=== PATIENT | female | born 1995 | race Two or more races ===

== ENCOUNTER 2019-10-01 03:55 | Emergency (ER) | payer MEDICAID ==
[~2019-10-01] VITALS: Ht 175.3 cm; Wt 79.4 kg
[2019-10-01] MEDS ORDERED: ADENOSINE 6 MG/2 ML INJ IV ONE ×2 (04:15)
[2019-10-01 05:41] LABS: Basophils # (auto) 0 uL; Basophils % (auto) 0.6 % (0.0-2.0); Eosinophils # (auto) 0.1 uL; Eosinophils % (auto) 1.2 % (0.0-7.0); Hematocrit 43.6 % (36.0-46.0); Lymphocytes % (auto) 39.5 % (10.0-50.0); Mean Corpuscular Hemoglobin 30.9 pg (28.0-32.0); Mean Corpuscular Hgb Conc. 34.4 g/dL (32.0-36.0); Mean Corpuscular Volume 89.7 fL (80.0-100.0); Monocytes # (auto) 0.5 uL; Monocytes % (auto) 6.2 % (0.0-12.0); Neutrophils % (auto) 52.5 % (37.0-80.0); Platelet Count (auto) 226 10^3/uL (140-450); Red Blood Cells 4.86 10^6/uL (4.0-5.20); Red Cell Distribution Width 12.6 % (11.8-14.3); White Blood Cell 7.6 10^3/uL (4.4-10.8)
[2019-10-01 05:44] LABS: Urine Bacteria NONE SEEN /hpf (None Seen); Urine Blood Negative /uL (Negative); Urine Specific Gravity 1.001 (1.001-1.035); Urine WBC <1 /hpf (0 - 5)
[2019-10-01 05:58] LABS: Alanine Aminotransferase 33 U/L (13-56); Albumin 3.7 g/dL (3.4-5.0); Anion Gap 10 (5-15); Aspartate Aminotransferase 21 U/L (15-37); BUN/Creatinine Ratio 15.4; Blood Urea Nitrogen 10 mg/dL (7-18); Calcium 8.6 mg/dL (8.5-10.1); Carbon Dioxide 19 mmol/L (21-32); Chloride 115 mmol/L (98-107); GFR African American 144 mL/min; GFR Non-African American 119 mL/min; Glucose 83 mg/dL (74-106); Magnesium 2.1 mg/dL (1.6-2.6); Potassium 3.8 mmol/L (3.5-5.1); Sodium 144 mmol/L (136-145)
[2019-10-01 06:02] LABS: Alkaline Phosphatase 70 U/L (45-117); Bilirubin, Total 0.2 mg/dL (0.2-1.0); Total Protein 7.4 g/dL (6.4-8.2)
[2019-10-01 06:03] LABS: Amphetamine Screen, Urine NEGATIVE (NEGATIVE); Barbiturate Scree,Urine NEGATIVE (NEGATIVE); Benzodiazephine Screen, Urine NEGATIVE (NEGATIVE); Cannabinoid Screen, Urine POSITIVE (NEGATIVE); Opiate Scree,Urine NEGATIVE (NEGATIVE); Phencyclidine Screen, Urine NEGATIVE (NEGATIVE)
[2019-10-01 06:10] LABS: Cocaine Screen, Urine NEGATIVE (NEGATIVE)
[2019-10-01 06:30] VITALS: BP 105/59
== END 2019-10-01 06:39 | disposition home or self-care (01) ==
LOC: ER 04:09
DX: I47.1 Supraventricular tachycardia (principal); F41.9 Anxiety disorder, unspecified
CPT/HCPCS: 36415; 80053; 80307; 80320; 81001; 83735; 84443; 84484; 84702; 85025; 93005; 96374; 99284; J0153

== ENCOUNTER 2020-12-17 20:07 | Emergency (ER) | payer MEDICAID | END 2020-12-17 20:28 | disposition left against medical advice (07) | LOC: ER 20:12 | DX: J02.9 Acute pharyngitis, unspecified (principal); H92.09 Otalgia, unspecified ear; Z53.21 Procedure and treatment not carried out due to patient leaving prior to being seen by health care provider ==

== ENCOUNTER 2021-03-17 01:58 | Inpatient (IN) | payer MEDICAID ==
[~2021-03-17] VITALS: Ht 170.2 cm; Wt 107.4 kg
[2021-03-17] MEDS ORDERED: ONDANSETRON HCL 4 MG/2 ML VIAL IV ONE (04:00)
[2021-03-17] MEDS ORDERED: fentaNYL CITRATE 100 MCG/2 ML VL IV ONE (04:00)
[2021-03-17] MEDS ORDERED: KETOROLAC TROMETH 30 MG/ML 1ML VIAL IV ONE (04:00)
[2021-03-17] MEDS ORDERED: HYDROmorphone HCL 2 MG/ML VL IV ONE (06:30)
[2021-03-17] MEDS ORDERED: MORPHINE SULFATE 4 MG/ML SYR/VIAL IV PRN (07:15)
[2021-03-17] MEDS ORDERED: ACETAMINOPHEN 325 MG TAB PO PRN (07:15)
[2021-03-17] MEDS ORDERED: KETOROLAC TROMETH 30 MG/ML 1ML VIAL IV PRN (07:15)
[2021-03-17] MEDS ORDERED: ONDANSETRON HCL 4 MG/2 ML VIAL IV PRN (07:15)
[2021-03-17] MEDS ORDERED: HYDROcodone-ACET 5/325MG TAB PO PRN (07:15)
[2021-03-17] MEDS ORDERED: NITROGLYCERIN 0.4 MG SL TAB SL PRN (07:15)
[2021-03-17] MEDS ORDERED: MORPHINE SULF INJ 2 MG/ML SYRINGE 1ML IV PRN (07:15)
[2021-03-17 08:00] VITALS: BP 116/63
[2021-03-17 08:33] LABS: Basophils # (auto) 0 10 ^3/uL (0-0.2); Basophils % (auto) 0.1 % (0.0-2.0); Eosinophils # (auto) 0 10 ^3/uL (0-0.8); Eosinophils % (auto) 0.1 % (0.0-7.0); Hematocrit 40.5 % (36.0-46.0); Lymphocytes # (auto) 1.8 10 ^3/uL (0.4-5.4); Lymphocytes % (auto) 9.7 % (10.0-50.0); Mean Corpuscular Hemoglobin 31.5 pg (28.0-32.0); Mean Corpuscular Hgb Conc. 34.4 g/dL (32.0-36.0); Mean Corpuscular Volume 91.5 fL (80.0-100.0); Monocytes # (auto) 0.8 10 ^3/uL (0-1.3); Monocytes % (auto) 4.1 % (0.0-12.0); Neutrophils # (auto) 16.1 10 ^3/uL (1.6-8.6); Platelet Count (auto) 301 10^3/uL (140-450); Red Blood Cells 4.43 10^6/uL (4.0-5.20); Red Cell Distribution Width 12.9 % (11.8-14.3); White Blood Cell 18.7 10^3/uL (4.4-10.8)
[2021-03-17 08:35] LABS: INR 0.96 (0.9-1.15); Partial Thromboplastin Time 24.1 sec (23.0-31.2); Potassium 3.9 mmol/L (3.5-5.1)
[2021-03-17 08:45] LABS: BUN/Creatinine Ratio 13.7; Calcium 8.8 mg/dL (8.5-10.1)
[2021-03-17 08:46] LABS: Albumin 3.7 g/dL (3.4-5.0); Bilirubin, Total 0.5 mg/dL (0.2-1.0); Magnesium 2.5 mg/dL (1.6-2.6); Total Protein 7.6 g/dL (6.4-8.2)
[2021-03-17 08:56] LABS: Urine Bacteria NONE SEEN /hpf (None Seen); Urine Blood Negative /uL (Negative); Urine Hyaline Cast FEW /lpf (0 - 2); Urine Specific Gravity 1.024 (1.001-1.035); Urine WBC 3 /hpf (0 - 5)
[2021-03-17] MEDS: MULTIPLE VITAMIN TAB PO SCH (10:00)
[2021-03-17] MEDS: ASCORBIC ACID 500 MG TAB PO SCH ×2 (10:00→21:39)
[2021-03-17] MEDS: ZINC SULFATE 220mg CAP or TAB PO SCH (10:00)
[2021-03-17] MEDS: ENOXAPARIN SOD 40 MG/0.4 ML SYRINGE SC SCH (12:15)
[2021-03-17] MEDS: FAMOTIDINE (10MG/ML) 2ML VL IV SCH ×2 (12:15→21:39)
[2021-03-17 13:00] VITALS: BP 133/66
[2021-03-17] MEDS ORDERED: BUPIVACAINE 0.25% INJ 50ML VIAL ONE (14:50)
[2021-03-17] MEDS ORDERED: ceFAZolin 1GM/50ML 100 ML IV ONE (15:02)
[2021-03-17] MEDS ORDERED: MIDAZOLAM HCL 1MG/1ML-2 ML VIAL ONE (15:04)
[2021-03-17] MEDS ORDERED: fentaNYL CITRATE 100 MCG/2 ML VL ONE (15:04)
[2021-03-17] MEDS ORDERED: ONDANSETRON HCL 4 MG/2 ML VIAL ONE (15:46)
[2021-03-17] MEDS: ceFAZolin 1GM/50ML 50 ML IV SCH ×2 (16:15→21:39)
[2021-03-17] MEDS: LACTATED RINGER'S 1,000 ML IV SCH (16:15)
[2021-03-17] MEDS ORDERED: METOCLOPRAMIDE HCL 5MG/ml INJ 2ml VIAL IV PRN (16:30)
[2021-03-17] MEDS ORDERED: HYDROmorphone HCL 2 MG/ML VL IV PRN (16:30)
[2021-03-17] MEDS: HYDROmorphone HCL 2 MG/ML VL IV PRN ×6 (16:38→22:26)
[2021-03-17] MEDS: DOCUSATE SOD 100 MG CAP PO SCH (21:38)
[2021-03-17] MEDS: SODIUM CHLOR 0.9% PF (SALINE LOCK) 10ML VIAL/SYR IV SCH (21:39)
[2021-03-17] MEDS: OXYCODONE W/ ACETAMINOPHEN 5/325MG TABLET PO PRN (21:45)
[2021-03-17 22:00] VITALS: BP 127/88
[2021-03-18] MEDS: HYDROmorphone HCL 2 MG/ML VL IV PRN ×7 (00:20→19:31)
[2021-03-18] MEDS: OXYCODONE W/ ACETAMINOPHEN 5/325MG TABLET PO PRN (01:30)
[2021-03-18] MEDS: LACTATED RINGER'S 1,000 ML IV SCH ×3 (02:15→21:33)
[2021-03-18] MEDS: ceFAZolin 1GM/50ML 50 ML IV SCH (04:22)
[2021-03-18 05:00] VITALS: BP 141/80
[2021-03-18 05:32] LABS: Basophils # (auto) 0 10 ^3/uL (0-0.2); Basophils % (auto) 0.2 % (0.0-2.0); Eosinophils # (auto) 0 10 ^3/uL (0-0.8); Eosinophils % (auto) 0.1 % (0.0-7.0); Hematocrit 39.5 % (36.0-46.0); Hemoglobin 13.8 g/dL (12.2-16.2); Lymphocytes # (auto) 0.7 10 ^3/uL (0.4-5.4); Lymphocytes % (auto) 3.8 % (10.0-50.0); Mean Corpuscular Hemoglobin 31.9 pg (28.0-32.0); Mean Corpuscular Hgb Conc. 34.8 g/dL (32.0-36.0); Mean Corpuscular Volume 91.5 fL (80.0-100.0); Monocytes # (auto) 1.1 10 ^3/uL (0-1.3); Monocytes % (auto) 5.9 % (0.0-12.0); Neutrophils # (auto) 17.1 10 ^3/uL (1.6-8.6); Platelet Count (auto) 230 10^3/uL (140-450); Red Blood Cells 4.32 10^6/uL (4.0-5.20); Red Cell Distribution Width 12.7 % (11.8-14.3); White Blood Cell 18.9 10^3/uL (4.4-10.8)
[2021-03-18 05:51] LABS: Albumin 3.2 g/dL (3.4-5.0); Calcium 8.1 mg/dL (8.5-10.1); Potassium 4.2 mmol/L (3.5-5.1)
[2021-03-18] MEDS: SODIUM CHLOR 0.9% PF (SALINE LOCK) 10ML VIAL/SYR IV SCH ×3 (06:24→21:32)
[2021-03-18 08:00] VITALS: BP 142/80
[2021-03-18] MEDS ORDERED: OXYCODONE W/ ACETAMINOPHEN 5/325MG TABLET PO PRN (08:15)
[2021-03-18] MEDS: ZINC SULFATE 220mg CAP or TAB PO SCH (09:10)
[2021-03-18] MEDS: FAMOTIDINE (10MG/ML) 2ML VL IV SCH ×2 (09:10→21:32)
[2021-03-18] MEDS: ASCORBIC ACID 500 MG TAB PO SCH ×2 (09:10→21:32)
[2021-03-18] MEDS: DOCUSATE SOD 100 MG CAP PO SCH ×2 (09:11→21:32)
[2021-03-18] MEDS: ENOXAPARIN SOD 40 MG/0.4 ML SYRINGE SC SCH (09:11)
[2021-03-18] MEDS: MULTIPLE VITAMIN TAB PO SCH (09:11)
[2021-03-18 12:00] VITALS: BP 121/72
[2021-03-18] MEDS: KETOROLAC TROMETH 30 MG/ML 1ML VIAL IV SCH ×2 (12:11→18:00)
[2021-03-18] MEDS: CYCLOBENZAPRINE HCL 10 MG TAB PO SCH ×2 (14:04→21:32)
[2021-03-18 16:00] VITALS: BP 149/89
[2021-03-18 22:00] VITALS: BP 123/73
[2021-03-19] MEDS: HYDROmorphone HCL 2 MG/ML VL IV PRN ×6 (03:41→22:02)
[2021-03-19 05:00] VITALS: BP 113/72
[2021-03-19] MEDS: SODIUM CHLOR 0.9% PF (SALINE LOCK) 10ML VIAL/SYR IV SCH ×3 (05:04→22:00)
[2021-03-19] MEDS: KETOROLAC TROMETH 30 MG/ML 1ML VIAL IV SCH ×4 (05:05→17:41)
[2021-03-19] MEDS: OXYCODONE W/ ACETAMINOPHEN 5/325MG TABLET PO PRN ×3 (05:05→20:35)
[2021-03-19] MEDS: CYCLOBENZAPRINE HCL 10 MG TAB PO SCH ×3 (05:05→22:01)
[2021-03-19 05:52] LABS: Hematocrit 37.1 % (36.0-46.0); Hemoglobin 12.8 g/dL (12.2-16.2)
[2021-03-19 08:00] VITALS: BP 141/71
[2021-03-19] MEDS: FAMOTIDINE (10MG/ML) 2ML VL IV SCH ×2 (08:05→22:00)
[2021-03-19] MEDS: MULTIPLE VITAMIN TAB PO SCH (08:05)
[2021-03-19] MEDS: ENOXAPARIN SOD 40 MG/0.4 ML SYRINGE SC SCH (08:05)
[2021-03-19] MEDS: ZINC SULFATE 220mg CAP or TAB PO SCH (08:05)
[2021-03-19] MEDS: ASCORBIC ACID 500 MG TAB PO SCH ×2 (08:05→22:01)
[2021-03-19] MEDS: DOCUSATE SOD 100 MG CAP PO SCH ×2 (08:06→22:00)
[2021-03-19] MEDS: LACTATED RINGER'S 1,000 ML IV SCH (08:15)
[2021-03-19 12:00] VITALS: BP 132/95
[2021-03-19] MEDS ORDERED: OXYCODONE W/ ACETAMINOPHEN 5/325MG TABLET PO PRN (14:30)
[2021-03-19 16:00] VITALS: BP 134/79
[2021-03-19 22:00] VITALS: BP 140/78
[2021-03-20] MEDS: HYDROmorphone HCL 2 MG/ML VL IV PRN ×6 (02:45→22:19)
[2021-03-20] MEDS: OXYCODONE W/ ACETAMINOPHEN 5/325MG TABLET PO PRN ×4 (05:03→21:04)
[2021-03-20 05:18] VITALS: BP 119/83
[2021-03-20 05:33] LABS: Basophils # (auto) 0 10 ^3/uL (0-0.2); Basophils % (auto) 0.1 % (0.0-2.0); Eosinophils # (auto) 0.1 10 ^3/uL (0-0.8); Eosinophils % (auto) 1.6 % (0.0-7.0); Hematocrit 36.6 % (36.0-46.0); Hemoglobin 12.7 g/dL (12.2-16.2); Lymphocytes # (auto) 1.5 10 ^3/uL (0.4-5.4); Lymphocytes % (auto) 15.8 % (10.0-50.0); Mean Corpuscular Hemoglobin 31.9 pg (28.0-32.0); Mean Corpuscular Hgb Conc. 34.7 g/dL (32.0-36.0); Monocytes # (auto) 0.7 10 ^3/uL (0-1.3); Monocytes % (auto) 7.6 % (0.0-12.0); Neutrophils # (auto) 7.1 10 ^3/uL (1.6-8.6); Neutrophils % (auto) 74.9 % (37.0-80.0); Nucleated Red Blood Cells % 0.1 %; Platelet Count (auto) 244 10^3/uL (140-450); Red Blood Cells 3.98 10^6/uL (4.0-5.20); Red Cell Distribution Width 12.9 % (11.8-14.3); White Blood Cell 9.5 10^3/uL (4.4-10.8)
[2021-03-20] MEDS: SODIUM CHLOR 0.9% PF (SALINE LOCK) 10ML VIAL/SYR IV SCH ×3 (05:41→21:03)
[2021-03-20] MEDS: CYCLOBENZAPRINE HCL 10 MG TAB PO SCH ×3 (05:41→21:03)
[2021-03-20 05:44] LABS: Albumin 2.6 g/dL (3.4-5.0); Calcium 8.3 mg/dL (8.5-10.1); Potassium 3.7 mmol/L (3.5-5.1)
[2021-03-20 05:48] LABS: BUN/Creatinine Ratio 13.8; Bilirubin, Total 0.6 mg/dL (0.2-1.0); Total Protein 6.7 g/dL (6.4-8.2)
[2021-03-20 08:00] VITALS: BP 146/66
[2021-03-20] MEDS: FAMOTIDINE (10MG/ML) 2ML VL IV SCH ×2 (09:11→21:02)
[2021-03-20] MEDS: ASCORBIC ACID 500 MG TAB PO SCH ×2 (09:11→21:04)
[2021-03-20] MEDS: ENOXAPARIN SOD 40 MG/0.4 ML SYRINGE SC SCH (09:11)
[2021-03-20] MEDS: DOCUSATE SOD 100 MG CAP PO SCH ×2 (09:11→21:03)
[2021-03-20] MEDS: ZINC SULFATE 220mg CAP or TAB PO SCH (09:11)
[2021-03-20] MEDS: MULTIPLE VITAMIN TAB PO SCH (09:12)
[2021-03-20 12:00] VITALS: BP 126/82
[2021-03-20 16:00] VITALS: BP 133/83
[2021-03-20 22:00] VITALS: BP 137/75
[2021-03-21] MEDS: HYDROmorphone HCL 2 MG/ML VL IV PRN ×8 (01:47→23:59)
[2021-03-21] MEDS: OXYCODONE W/ ACETAMINOPHEN 5/325MG TABLET PO PRN ×5 (04:07→22:28)
[2021-03-21 05:00] VITALS: BP 144/70
[2021-03-21] MEDS: CYCLOBENZAPRINE HCL 10 MG TAB PO SCH ×3 (06:18→22:27)
[2021-03-21] MEDS: SODIUM CHLOR 0.9% PF (SALINE LOCK) 10ML VIAL/SYR IV SCH ×3 (06:18→22:27)
[2021-03-21 09:00] VITALS: BP 128/83
[2021-03-21] MEDS: ASCORBIC ACID 500 MG TAB PO SCH ×2 (09:40→22:27)
[2021-03-21] MEDS: MULTIPLE VITAMIN TAB PO SCH (09:40)
[2021-03-21] MEDS: DOCUSATE SOD 100 MG CAP PO SCH ×2 (09:40→22:27)
[2021-03-21] MEDS: ZINC SULFATE 220mg CAP or TAB PO SCH (09:40)
[2021-03-21] MEDS: FAMOTIDINE (10MG/ML) 2ML VL IV SCH ×2 (09:40→22:26)
[2021-03-21] MEDS: ENOXAPARIN SOD 40 MG/0.4 ML SYRINGE SC SCH (09:41)
[2021-03-21] MEDS: CEPHALEXIN 250 MG CAP PO SCH ×3 (11:33→23:58)
[2021-03-21 12:32] VITALS: BP 135/77
[2021-03-21] MEDS: LACTULOSE 20Gm/30ML SOLN PO PRN (15:57)
[2021-03-21 17:00] VITALS: BP 155/87
[2021-03-21 22:00] VITALS: BP 131/87
[2021-03-22] MEDS: OXYCODONE W/ ACETAMINOPHEN 5/325MG TABLET PO PRN ×3 (02:22→12:54)
[2021-03-22] MEDS: HYDROmorphone HCL 2 MG/ML VL IV PRN ×4 (03:35→14:16)
[2021-03-22 05:00] VITALS: BP 144/78
[2021-03-22] MEDS: SODIUM CHLOR 0.9% PF (SALINE LOCK) 10ML VIAL/SYR IV SCH ×2 (06:45→14:15)
[2021-03-22] MEDS: CYCLOBENZAPRINE HCL 10 MG TAB PO SCH ×2 (06:45→14:16)
[2021-03-22] MEDS: CEPHALEXIN 250 MG CAP PO SCH ×2 (06:46→12:18)
[2021-03-22] MEDS: ASCORBIC ACID 500 MG TAB PO SCH (08:07)
[2021-03-22] MEDS: LACTULOSE 20Gm/30ML SOLN PO PRN (08:07)
[2021-03-22] MEDS: ZINC SULFATE 220mg CAP or TAB PO SCH (08:07)
[2021-03-22] MEDS: DOCUSATE SOD 100 MG CAP PO SCH (08:07)
[2021-03-22] MEDS: FAMOTIDINE (10MG/ML) 2ML VL IV SCH (08:08)
[2021-03-22] MEDS: ENOXAPARIN SOD 40 MG/0.4 ML SYRINGE SC SCH (08:08)
[2021-03-22] MEDS: MULTIPLE VITAMIN TAB PO SCH (08:08)
[2021-03-22 08:44] VITALS: BP 135/82
[2021-03-22 12:39] VITALS: BP 131/73
== END 2021-03-22 16:23 | disposition home or self-care (01) | DRG 308 ==
LOC: ER 01:58 → EDBD 01:58 → TELE 07:05 → TELE-WESTW 09:27
PROVIDERS: ADMIT Nurse Practitioner Family; ATTEND Internal Medicine
PROC: BQ14ZZZ Fluoroscopy of Left Femur (ICD-10-PCS; 2021-03-17)
PROC: 0QS704Z Reposition Left Upper Femur with Internal Fixation Device, Open Approach (ICD-10-PCS; principal; 2021-03-17 15:05)
DX: S72.002A Fracture of unspecified part of neck of left femur, initial encounter for closed fracture (principal); I47.1 Supraventricular tachycardia; R65.10 Systemic inflammatory response syndrome (SIRS) of non-infectious origin without acute organ dysfunction; Z20.822 Contact with and (suspected) exposure to COVID-19; L40.9 Psoriasis, unspecified; W01.0XXA Fall on same level from slipping, tripping and stumbling without subsequent striking against object, initial encounter; E66.9 Obesity, unspecified; F17.200 Nicotine dependence, unspecified, uncomplicated; Y92.89 Other specified places as the place of occurrence of the external cause; Y93.41 Activity, dancing; Y92.29 Other specified public building as the place of occurrence of the external cause; Y99.8 Other external cause status; Z68.37 Body mass index [BMI] 37.0-37.9, adult
CPT/HCPCS: 36415; 71045; 72170; 73502; 76000; 80053; 81001; 83735; 84702; 85014; 85018; 85025; 85610; 85730; 86850; 86900; 86901; 87426; 93005; 96374; 96375; 97110; 97116; 97530; A4565; G0378; J0690; J1885; J2250; J2405; J3490